=== PATIENT | male | born 1965 | race Caucasian/White ===

== ENCOUNTER → 2017-12-14 15:41 | Outpatient (CLI) | payer MEDICAID, SELFPAY ==
[2017-12-14 17:13] LABS: Absolute Lymphocyte Count 2.29 X10^3/ul (0.83-4.51); Basophil# 0.04 X10^3/uL; Basophil% 0.7 % (0-1); Eosinophil# 0.36 X10^3/uL; Hematocrit 44.3 % (40-54); Hemoglobin 14.4 g/dl (13.0-16.5); Lymphocyte # 2.29 X10^3/ul (4.0); Lymphocyte % 37.9 % (19-41); Mean Corp Hgb Conc 32.5 g/gl (32-36); Mean Corpuscular Hgb 28.7 pg (27.0-32.0); Mean Corpuscular Volume 88.2 fL (80-94); Mean Platelet Vol. 9.5 fl (6.2-12.0); Monocyte# 0.36 X10^3/uL; Neutrophil # 2.99 X10^3/uL (2.7-7.7); Neutrophil % 49.4 % (47-70); Platelet Count 228 K/mm3 (150-450); RBC Distribution Width CV 12.5 % (11.6-14.6); RBC Distribution Width SD 39.6 fl (35.1-43.9); Red Blood Count 5.02 M/mm3 (4.6-6.2)
[2017-12-14 17:15] LABS: POSITIVE COUNT NO; POSITIVE DIFFERENTIAL NO; POSITIVE MORPHOLOGY NO
[2017-12-14 17:46] LABS: Anion Gap 8 (5-15); BUN 17 mg/dL (7-18); BUN/Creat Ratio 15.3 RATIO (10-20); Calcium,Total 8.3 mg/dL (8.5-10.1); Chloride 109 mmol/L (98-107); Creatinine, Serum 1.11 mg/dL (0.70-1.30); EST Glomerular Filtration Rate 74 mL/min (>60); Est Glom Filt Rate - Afr Amer 90 mL/min (>60); Glucose 164 mg/dL (74-106); Potassium 4.4 mmol/L (3.5-5.1); Sodium Level 143 mmol/L (136-145)
== END ==
PROVIDERS: Family Provider Family Medicine; PCP Family Medicine; Visit Provider Nurse Practitioner Family
DX: R00.1 Bradycardia, unspecified (principal); Z95.818 Presence of other cardiac implants and grafts; I10 Essential (primary) hypertension; E78.5 Hyperlipidemia, unspecified
CPT/HCPCS: 36415; 80048; 85025

== ENCOUNTER → 2018-01-07 06:47 | Day surgery (SDC) | payer MEDICAID, SELFPAY ==
--- NOTE | 2018-01-07 06:47 | DT_ITS ---
This patient was seen during an EMR downtime January 03, 2018 - January 10, 2018. This patient may have a combination of paper and electronic documentation or all paper documentation. All documentation is viewable within the e-chart portion of [facility] for each patient visit.
--- NOTE | 2018-01-07 16:57 | CL.IE_ITS ---
Patient: GUERA JAMESON Study Date: 01/07/2018 Performing: Brad Guerra MD : 1965 Age: 52 Gender: male PROCEDURES PERFORMED [id number] OF LOOP RECORDER INDICATIONS End-of-life replacement indicator PROCEDURE DETAILS The patient was brought to the Catheterization Lab in the postabsorptive nonsedated state. Informed consent was obtained prior to the procedure. Local anesthetic was given subcutaneously to the left up per chest area with Lidocaine 2%. Incision was made to the left upper chest. The patient tolerated t he procedure well. Estimated Blood Loss: 5 ml's IMPLANTED / EX-PLANTED DEVICES DEVICE PARAMETERS CONCLUSIONS / RECOMMENDATIONS Device Conclusions: Successful removal of a patient activated loop recorder. Device Recommendations: Follow up with Primary Care Physician PROCEDURE MEDICATIONS Versed 1 mg IV Versed 1 mg IV Oxygen: 2 L/min via nasal cannula Signed By Brad Guerra MD On 01/07/2018 15:00:49 Brad Guerra MD
== END ==
PROVIDERS: Family Provider Family Medicine; PCP Family Medicine; Visit Provider Internal Medicine Cardiovascular Disease
DX: Z45.09 Encounter for adjustment and management of other cardiac device (principal); I49.5 Sick sinus syndrome; E11.9 Type 2 diabetes mellitus without complications; G40.909 Epilepsy, unspecified, not intractable, without status epilepticus; I10 Essential (primary) hypertension; E78.5 Hyperlipidemia, unspecified; G47.33 Obstructive sleep apnea (adult) (pediatric); M54.9 Dorsalgia, unspecified; G89.29 Other chronic pain; E66.9 Obesity, unspecified; Z79.84 Long term (current) use of oral hypoglycemic drugs; Z79.82 Long term (current) use of aspirin; Z79.899 Other long term (current) drug therapy; Z95.818 Presence of other cardiac implants and grafts
CPT/HCPCS: 33284; 99152; J7040

== ENCOUNTER → 2018-01-18 12:57 | Outpatient (CLI) | payer MEDICAID, SELFPAY | PROVIDERS: Family Provider Family Medicine; PCP Family Medicine; Visit Provider Nurse Practitioner Acute Care | DX: G47.33 Obstructive sleep apnea (adult) (pediatric) (principal) | CPT/HCPCS: 98960; G0463 ==

== ENCOUNTER 2018-06-13 11:35 | Day surgery (SDC) | payer MEDICAID, SELFPAY ==
--- NOTE | 2018-06-13 | IMM_PTH ---
PATIENT: GUERA JAMESON LOC: EN U#:[id number] AGE/SX: 52/M ROOM: RE06/13/[address]: Dr. Sonny Reynolds MD : 1965 BED: DIS: 06/13/2018 SPEC #: [id number] RECD: 06/16/18 07:57 STATUS: ANMOL REJackelin #: [id number] DANK: 06/13/18 00:[address]: Sonny Reynolds DEPT: IMMUNOHISTOCHEMISTRY RECD BY: Brigid Link ENTERED: 06/16/18 07:57 SP TYPE: IMMUNO OTHR DR: Dr. Skyler Painting MD Tissues: Gastric mucous membrane Procedures: H Pylori (initial) PHYSICIAN & INSTITUTION [place] [id number] SPECIMEN INFORMATION: Tissue Source: A. Antral biopsy Clinical Info: GERD, screening Specimen Number: [id number] CPT code: 56687 METHODOLOGY: Deparaffinized sections of prefer/formalin-fixed tissue or PAP/DQ stained slides are incubated with monoclonal/polyclonal antibodies/oligonucleotide probes. Localization is made via biotin free immunoperoxidase method. Appropriate controls are performed and reacted as expected. Results on target cell population are indicated in the following table: RESULTS: ANTIBODY / CLONE RESULT H Pylori (polyclonal) negative These tests were developed and their performance characteristics determined by [facility]. They may not have been cleared or approved by the U.S. Food and Drug Administration. The FDA has determined that such clearance or approval is not necessary. INTERPRETATION: Antral biopsy: Negative for Helicobacter pylori organisms. SJ:marisela 06/15/18
--- NOTE | 2018-06-13 12:17 | PCM.HP.BLA ---
History and Physical Date of Admission: 06/13/18 HISTORY AND PHYSICAL ? Aurelio Españaefoo 1965 ? REFERRING PHYSICIAN: ??Skyler Painting MD ? CHIEF COMPLAINT: ??Established Patient (Update H&P colonoscopy 06/13/18) ? HPI: The patient is a 52 year old male referred for endoscopy. ?Patient was evaluated previously by Natalia Gifford in gastroenterology, that note has been reviewed. ?Aurelio notes no history of colon complaints. ?He denies any change in bowel habits, weight changes, blood in stools, black tarry stools or abdominal pain. ?Notes family history of colon cancer in grandfather, but denies any first-degree relatives with colon cancer. ?The patient notes complaints of acid reflux and dyspepsia. ? Aurelio has not?undergone prior endoscopy. ?He was previously scheduled for colonoscopy and EGD in January but states he had to cancel at that time as he did not receive bowel prep prescription. ?He has been rescheduled with Dr. Reynolds for 06/13/18 at [facility] and presents today for updated history and physical. ? Patient is scheduled to have the procedures under Monitored Anesthetic Care due to his history of seizures. ?Most recent seizure was actually a couple of weeks ago, prior to that most recent had been September 2017. ?Patient follows with [facility], last seen in March 2018. ?He states he notified his neurologist immediately after the seizure, states they are keeping his medications the same for now. ?He denies any other new concerns. ?Denies any chest pain, shortness of breath or recent hospitalizations. ?Denies problems with sedation in the past. ? ? PAST MEDICAL HISTORY PAST MEDICAL HISTORY Diagnosis Date ? Chronic depressive personality disorder ? ? HTN (hypertension) ? ? Hyperlipidemia ? ? Seizure disorder (HCC) ? ? Sick sinus syndrome (HCC) ? ? Type II or unspecified type diabetes mellitus without mention of complication, not stated as uncontrolled ? ? Umbilical hernia without mention of obstruction or gangrene 10/16/2005 ? ? PAST SURGICAL HISTORY PAST SURGICAL HISTORY Procedure Laterality Date ? I/D PERIANAL ABSCESS, SUPERFICIAL ? ? ? PAST SURGICAL HISTORY OF ? ? ? Lipoma removal lower back on spine ? PAST SURGICAL HISTORY OF ? ? ? Lipoma removal left forearm ? PAST SURGICAL HISTORY OF ? 2018 ? removal of loop recorder ? REPAIR UMBILICAL CHAY,5+Y/O,REDUC ? 09/2005 ? Hernia repair, umbilical >5yr ? ? CURRENT MEDICATIONS ? Current Outpatient Prescriptions: atorvastatin (LIPITOR) 40 mg tablet TAKE 1 TABLET EVERY DAY lisinopril (ZESTRIL, PRINIVIL) 20 mg tablet TAKE 1 TABLET BY MOUTH TWICE DAILY FOR BLOOD PRESSURE pioglitazone (ACTOS) 15 mg tablet TAKE 1 TABLET EVERY DAY glyBURIDE (DIABETA) 5 mg tablet TAKE 2 TABLETS BY MOUTH EVERY DAY with breakfast COMPOUNDED PRESCRIPTION BLOOD PRESSURE LARGE ARM CUFF AND MONITOR FOR HOME USE. DX: LABILE BLOOD PRESSURE, DX: I.10 metFORMIN (GLUCOPHAGE) 850 mg tablet TAKE 1 TABLET BY MOUTH THREE TIMES DAILY lancets (UNILET SUPER THIN LANCETS) 30 gauge misc Check blood sugar once a day, E11.9 no insuline blood sugar diagnostic (FREESTYLE LITE STRIPS) test strip Check blood sugar once a day, Dx E11.9 no insulin amLODIPine (NORVASC) 5 mg tablet Take 5 mg by mouth once daily. MAGNESIUM ORAL Take 160 mg by mouth. mag citrate Blood-Glucose Meter (Multiwave PhotonicsTOUCH ULTRA2) monitoring kit 1 Each as needed. One Touch Meter Kit ??Diagnosis: Type 2 DM - Controlled E11.9 no insulin levETIRAcetam (KEPPRA) 1,000 mg tablet Take 1 tablet by mouth twice daily. FLUoxetine (PROZAC) 20 mg capsule Take 1 capsule by mouth once daily. [facility] (Patient taking differently: Take 30 mg by mouth once daily. [facility] ) CPAP Initiate CPAP @ 15 cm of water with humidification. Mask (per patient preference) optional chin strap (if indicated) , filters, tubing, humidifier and lifetime supplies. 327.23 (Patient taking differently: Initiate BIPAP @ 15 cm of water with humidification. Mask (per patient preference) optional chin strap (if indicated) , filters, tubing, humidifier and lifetime supplies. 327.23) aspirin, enteric coated (ASPIRIN, ENTERIC COATED) 325 mg EC tablet Take 1 tablet by mouth once daily. with food. loratadine (CLARITIN) 10 mg tablet Take 1 tablet by mouth once daily as needed. ? No current facility-administered medications for this visit. ? ALLERGIES: Patient has no known allergies. ? PERSONAL HISTORY: SOCIAL HISTORY Social History ??Marital status: Single ?Spouse name: ?Years of education: ?Number of children: 0 ? Occupational History Occupation ?Employer ?Comment ? laid off from [employer] ? Social History Main Topics ??Smoking status: Never Smoker ?Smokeless tobacco: Never Used ?Alcohol use: Yes ?Comment: occasionally ??Drug use: No ?Sexual activity: No ? FAMILY HISTORY: FAMILY HISTORY FAMILY HISTORY Problem Relation Age of Onset ? Psychiatry Mother ?depression ? Cancer Mother ?uterine ? Emphysema Father ?smoker ? Colon Cancer Paternal Grandfather ? ? Cancer Maternal Grandmother ?pancreatic ? Diabetes Paternal Grandmother ? ? Diabetes Maternal Uncle ? ? other (pulmonary embolism) Maternal Uncle ? ? REVIEW OF SYMPTOMS: ??The review of systems data was entered by the nurse and reviewed by me ? Nursing Notes: Armand Orozco LPN ?06/06/2018 ?2:55 PM ?Signed REVIEW OF SYSTEMS: ?General:???The patient denies fatigue, denies weight loss, denies weight gain, denies feeling hot, and denies feelings of cold. ?Eyes: ?The patient denies glaucoma, denies eye injury/surgery, wears glasses or contacts. ?Ear/Nose/Throat: ?The patient denies allergies, denies hayfever, denies ear infections, and denies bloody noses. ?Cardiovascular: ?The patient denies chest pain, denies heart disease, NOTES high blood pressure,denies cardiac stent, denies prior heart attack, NOTES irregular heart beat, NOTES high cholesterol, ?denies poor circulation, denies heart failure, other cardiac issues, denies claudication, denies cold feet, denies peripheral arterial stent. ?Respiratory: ?The patient denies tuberculosis, NOTES pneumonia, denies frequent cough, denies pulmonary embolism, denies shortness of breath, and denies coughing up blood. ?Gastrointestinal: ?The patient denies difficulty swallowing, NOTES acid reflux, denies ulcers, denies vomiting, denies jaundice/hepatitis, denies gallbladder problems, denies black or tarry stools, denies hemorrhoids, denies bleeding from rectum, denies diverticulitis, denies constipation, denies diarrhea, denies loss of stool control, and NOTES hernias. ?Kidney/Bladder: ?The patient denies kidney stones, denies urine infections, and denies bloody urine. ?Skin: ?The patient denies a history of skin cancer, denies bleeding/changing moles, and NOTES a history of skin rash. ?Neurologic: ?The patient NOTES a history of epilepsy/convulsions, denies headaches, NOTES head/spinal injuries, and denies stroke/TIA. ?Psychiatric: ?The patient NOTES psychiatric medications, NOTES depression, and denies voices, denies substance abuse. ?Endocrine: ?The patient denies thyroid disorders, NOTES diabetes, and denies hormonal problems. ?Hematologic: ?The patient denies a history of bruising, denies bleeding, and denies anemia, denies blood clots. ?Infections: ?The patient denies a history of measles and mumps, denies rheumatic fever, and denies sexually transmitted diseases. ?Musculoskeletal: ?The patient NOTES back pain/injury, denies back problems, denies sciatica, denies knee/foot trouble, denies arthritis, or denies gout. ? ? When was patient's last Mammogram screening? N/A ? ?Last Colonoscopy: ?N/A ? Armand Orozco LPN? Pat Peñaloza PA-C ? ? PHYSICAL EXAMINATION: ? General: ?The patient is 52 year old male, well nourished, well hydrated in no acute distress. ?The patient is oriented to time, place, and person. ? VITALS: Blood pressure 118/82, pulse 92.?There is no height or weight on file to calculate BMI.? ? HEENT: ?Normal cephalic, ataumatic, pupils are equally round, sclera are anicteric, mucous membranes are moist, oropharynx is clear. ?Neck has no masses, asymmetry or lymphadenopathy. ? ? Respiratory: ?Clear to auscultation and percussion. ?Normal respiratory excursion and pattern. ? Cardiac: ?Examination is regular rate and rhythm. ? Abdominal exam: ?Soft, nontender, ?with no palpable masses. ?No hepatosplenomegaly. ?No palpable hernias. ? Extremities: ?no clubbing, cyanosis or edema. ?No adenopathy. ? ? LABORATORY VALUES: As Noted ? RADIOLOGIC STUDIES: ?As Noted ? ? Assessment ? IMPRESSION: encounter for screening colonoscopy, GERD. ?Seizure disorder with recent seizure since last visit ? PLAN: ?I have reviewed my findings with Dr. Reynolds, who plans to perform upper and lower endoscopy. ?We discussed the risks and benefits of the planned endoscopy. ?I have informed the patient that complications can occur including failure to complete the endoscopy and perforation. ?The patient had the opportunity to ask questions concerning the planned endoscopy. ?My staff has also explained the procedure to the patient in understandable terms and has given the patient printed material concerning the procedure. ?The patient freely consents to surgery. ? Request for clearance for endoscopy procedures faxed to [facility]-clearance received from Leisa Sanchez and scanned in to [facility] ? I plan to use golytely bowel preparation for endoscopy ? The patient has been instructed to contact his PCP for instructions regarding his diabetic medications, which may require adjustments while completing clear liquid diet/bowel prep and/or day of procedure. ? Patient to remain on all other routine medications as usual, including his seizure and blood pressure medications which he should make sure to take the morning of procedure with a tiny sip of water ? I plan for monitored anesthetic care. ? Diagnoses: (Z12.11) Encounter for screening for malignant neoplasm of colon ?(primary encounter diagnosis) (E11.65) Uncontrolled type 2 diabetes mellitus without complication, without long-term current use of insulin (HCC) (G40.909) Seizure disorder (HCC) (K30) Functional dyspepsia (R12) Heartburn ? My findings have been communicated to Dr. Painting?via shared medical record. ?This note will be forwarded to Dr. Skyler Painting MD. ?? Return to Clinic: The patient is instructed to follow-up with me 1 week post operatively. ? ? Pat Peñaloza PA-C
[2018-06-13 12:21] VITALS: BP 122/78; PULSE 95; RESP 14; TEMP 36.7; O2SAT 98; BMI 38.2
[2018-06-13 12:36] LABS: Bedside Glucose 246 mg/dL (70-110)
--- NOTE | 2018-06-13 13:00 | EGD_PTH ---
PATIENT: GUERA JAMESON LOC: EN U#:[id number] AGE/SX: 52/M ROOM: RE06/13/[address]: Dr. Sonny Reynolds MD : 1965 BED: DIS: 06/13/2018 SPEC #: [id number] RECD: 06/13/18 15:13 STATUS: ANMOL REJackelin #: [id number] DANK: 06/13/18 13:[address]: Sonny Reynolds DEPT: SURGICAL PATHOLOGY RECD BY: Isreal Miller ENTERED: 06/14/18 10:11 SP TYPE: EGD BIOPSY OT DR: Dr. Skyler Painting MD Tissues: A - Gastric mucous membrane B - Gastric mucous membrane C - Transverse colon D - Rectum, NOS Procedures: Surgery Specimen Level IV HEADER OPERATION: [place] [place] DIAGNOSIS: GERD, screening TISSUE SUBMITTED: A. Antral biopsy, B. GE junction biopsy, C. Proximal transverse colon polyp, D. Rectal polyp MICROSCOPIC DIAGNOSIS A. Antral biopsy: Mild gastritis. See microscopic description and comment. B. GE junction, biopsy: Fragment of gastric mucosa with mild chronic inflammation. Intestinal metaplasia (goblet cell metaplasia) not identified. See comment. C. Proximal transverse colon polyp, biopsy: Consistent with inflammatory polyp. Negative for adenomatous changes. D. Rectal polyp, biopsy: Consistent with benign mucosal polyp. Negative for adenomatous changes. PEYMAN:arun 06/15/18 COMMENT A. The results of immunohistochemistry for Helicobacter pylori will be reported separately ([id number]). B. Alcian blue/PAS stain with matched control is used in the evaluation of the specimen. MICROSCOPIC DESCRIPTION Slides are reviewed. A. The specimen shows fragments of gastric mucosa with chronic inflammatory cell infiltrates in the lamina propria consisting of lymphocytes and plasma cells, consistent with mild chronic gastritis. GROSS DESCRIPTION A. Received is one container labeled with the patient name and designated antral biopsy. The specimen consists of one irregular fragment of light keith soft tissue that measures 0.5 x 0.3 x 0.1 cm. The specimen is totally submitted in one cassette. B. Received is one container labeled with the patient name and designated GE junction biopsy. The specimen consists of two irregular fragments of light keith soft tissue that in aggregate measure 0.5 x 0.3 x 0.1 cm. The specimen is totally submitted in one cassette. C. Received in fixative is one container labeled with the patient's name and designated proximal transverse colon polyp. The specimen consists of a piece of keith-pink polyp measuring 0.5 x 0.5 x 0.3 cm in one cassette. D. Received in fixative is one container labeled with the patient's name and designated rectal polyp. The specimen consists of a piece of keith-pink polyp measuring 0.3 x 0.3 x 0.2 cm. SJ:sp 06/14/18 TC: 3 CPT: 92826 x4, 64117
[2018-06-13 14:08] VITALS: BP 106/79; BP 122/78; PULSE 82; RESP 16; TEMP 36.1; O2SAT 95
--- NOTE | 2018-06-13 14:12 | OP.ENDO_ITS ---
Patient Name: Aurelio Recinos Procedure Date: 06/13/2018 1:31 PM Date of : 1965 Age: 52 Procedure: Upper GI endoscopy Indications: Suspected esophageal reflux Providers: Sonny Reynolds MD Referring MD: Sonny Reynolds MD Medicines: Monitored Anesthesia Care Patient Profile: This is a 52 year old male. Refer to note in patient chart for documentation of history and physical. Complications: No immediate complications. Procedure: Pre-Anesthesia Assessment: - Prior to the procedure, a History and Physical was performed, and patient medications and allergies were reviewed. The patient is competent. The risks and benefits of the procedure and the sedation options and risks were discussed with the patient. All questions were answered and informed consent was obtained. Patient identification and proposed procedure were verified by the physician, the nurse and the inside parts sales in the procedure room. Mental Status Examination: alert and oriented. Airway Examination: normal oropharyngeal airway and neck mobility. Respiratory Examination: clear to auscultation. CV Examination: normal. Prophylactic Antibiotics: The patient does not require prophylactic antibiotics. Prior Anticoagulants: The patient has taken no previous anticoagulant or antiplatelet agents. ASA Grade Assessment: III - A patient with severe systemic disease. After reviewing the risks and benefits, the patient was deemed in satisfactory condition to undergo the procedure. The anesthesia plan was to use monitored anesthesia care (MAC). Immediately prior to administration of medications, the patient was re-assessed for adequacy to receive sedatives. The heart rate, respiratory rate, oxygen saturations, blood pressure, adequacy of pulmonary ventilation, and response to care were monitored throughout the procedure. The physical status of the patient was re-assessed after the procedure. After obtaining informed consent, the endoscope was passed under direct vision. Throughout the procedure, the patient's blood pressure, pulse, and oxygen saturations were monitored continuously. The gastroscope was introduced through the mouth, and advanced to the jejunum. The upper GI endoscopy was accomplished without difficulty. The patient tolerated the procedure well. Scope In: 1:46:55 PM Scope Out: 1:51:37 PM Total Procedure Duration Time 0 hours 4 minutes 42 seconds Findings: The examined jejunum was normal. The examined duodenum was normal. Patchy moderate inflammation characterized by erosions, erythema and granularity was found in the stomach. Biopsies were taken with a cold forceps for Helicobacter pylori testing. Biopsies were taken with a cold forceps for histology. Biopsies were taken with a cold forceps for histology. A small hiatal hernia was present. Mildly severe esophagitis with no bleeding was found. Biopsies were taken with a cold forceps for histology. Impression: - Normal examined jejunum. - Normal examined duodenum. - Gastritis. Biopsied. - Small hiatal hernia. - Mildly severe reflux esophagitis. Biopsied. Recommendation: - Await pathology results. - Return to physician drafter assistant in 1 week. - Continue present medications. Procedure Code(s): --- Professional --- 39887, Esophagogastroduodenoscopy, flexible, transoral; with biopsy, single or multiple CPT copyright 2017 [employer]. All rights reserved. The codes documented in this report are preliminary and upon gum machine filler review may be revised to meet current compliance requirements. Sonny Reynolds MD 06/13/2018 2:12:03 PM This report has been signed electronically. Number of Addenda: 0 Note Initiated On: 06/13/2018 1:31 PM
--- NOTE | 2018-06-13 14:14 | OP.ENDO_ITS ---
Patient Name: Aurelio Recinos Procedure Date: 06/13/2018 1:51 PM Date of : 1965 Age: 52 Procedure: Colonoscopy Indications: Screening for colorectal malignant neoplasm Providers: Sonny Reynolds MD Referring MD: Sonny Reynolds MD Medicines: Monitored Anesthesia Care Patient Profile: This is a 52 year old male. Refer to note in patient chart for documentation of history and physical. Last Colonoscopy: none. The patient's first colonoscopy is today. Complications: No immediate complications. Procedure: Pre-Anesthesia Assessment: - Prior to the procedure, a History and Physical was performed, and patient medications and allergies were reviewed. The patient is competent. The risks and benefits of the procedure and the sedation options and risks were discussed with the patient. All questions were answered and informed consent was obtained. Patient identification and proposed procedure were verified by the physician, the nurse and the auto clutch rebuilder in the procedure room. Mental Status Examination: alert and oriented. Airway Examination: normal oropharyngeal airway and neck mobility. Respiratory Examination: clear to auscultation. CV Examination: normal. Prophylactic Antibiotics: The patient does not require prophylactic antibiotics. Prior Anticoagulants: The patient has taken no previous anticoagulant or antiplatelet agents. ASA Grade Assessment: III - A patient with severe systemic disease. After reviewing the risks and benefits, the patient was deemed in satisfactory condition to undergo the procedure. The anesthesia plan was to use monitored anesthesia care (MAC). Immediately prior to administration of medications, the patient was re-assessed for adequacy to receive sedatives. The heart rate, respiratory rate, oxygen saturations, blood pressure, adequacy of pulmonary ventilation, and response to care were monitored throughout the procedure. The physical status of the patient was re-assessed after the procedure. After I obtained informed consent, the scope was passed under direct vision. Throughout the procedure, the patient's blood pressure, pulse, and oxygen saturations were monitored continuously. The colonoscope was introduced through the anus and advanced to the cecum, identified by the appendiceal orifice, ileocecal valve and palpation. The colonoscopy was performed without difficulty. The patient tolerated the procedure well. The quality of the bowel preparation was fair. Scope In: 1:53:34 PM Scope Withdrawal Time 0 hours 7 minutes 28 seconds Scope Out: 2:04:04 PM Total Procedure Duration Time 0 hours 10 minutes 30 seconds Findings: The perianal and digital rectal examinations were normal. Two sessile polyps were found in the rectum and mid transverse colon. The polyps were small in size. These polyps were removed with a hot snare. Resection and retrieval were complete. The exam was otherwise without abnormality. The retroflexed view of the distal rectum and anal verge was normal and showed no anal or rectal abnormalities. Impression: - Preparation of the colon was fair. - Two small polyps (adenomatous) in the rectum and in the mid transverse colon, removed with a hot snare. Resected and retrieved. - The examination was otherwise normal. - The distal rectum and anal verge are normal on retroflexion view. Recommendation: - Discharge patient to home. - Resume previous diet. - Continue present medications. - Return to physician technical support assistant in 1 week. - Repeat colonoscopy for surveillance based on pathology results. Procedure Code(s): --- Professional --- 14516, Colonoscopy, flexible; with removal of tumor(s), polyp(s), or other lesion(s) by snare technique CPT copyright 2017 [employer]. All rights reserved. The codes documented in this report are preliminary and upon director oncology review may be revised to meet current compliance requirements. Sonny Reynolds MD 06/13/2018 2:13:55 PM This report has been signed electronically. Number of Addenda: 0 Note Initiated On: 06/13/2018 1:51 PM
[2018-06-13 14:15] VITALS: BP 109/80; BP 122/78; PULSE 85; RESP 16; O2SAT 95
[2018-06-13 14:20] VITALS: BP 112/88; BP 122/78; PULSE 80; RESP 16; O2SAT 94
[2018-06-13 14:25] VITALS: BP 118/85; BP 122/78; PULSE 80; RESP 16; TEMP 36; O2SAT 95
[2018-06-13 14:45] VITALS: BP 122/78
== END 2018-06-13 15:11 | disposition home or self-care (01) ==
LOC: EN 11:36 → AC 11:38
PROVIDERS: Family Provider Family Medicine; PCP Family Medicine; Referring Provider Surgery; Visit Provider Surgery
PROC: 0DJD8ZZ Inspection of Lower Intestinal Tract, Via Natural or Artificial Opening Endoscopic (ICD-10-PCS; CPT 45378; principal; 2018-06-13 12:55)
DX: Z12.11 Encounter for screening for malignant neoplasm of colon (principal); K63.5 Polyp of colon; K62.1 Rectal polyp; K29.70 Gastritis, unspecified, without bleeding; K44.9 Diaphragmatic hernia without obstruction or gangrene; K21.0 Gastro-esophageal reflux disease with esophagitis; G40.909 Epilepsy, unspecified, not intractable, without status epilepticus; F32.9 Major depressive disorder, single episode, unspecified; I10 Essential (primary) hypertension; E78.00 Pure hypercholesterolemia, unspecified; I49.5 Sick sinus syndrome; E11.65 Type 2 diabetes mellitus with hyperglycemia; K42.9 Umbilical hernia without obstruction or gangrene; G47.30 Sleep apnea, unspecified; Z79.84 Long term (current) use of oral hypoglycemic drugs; Z79.82 Long term (current) use of aspirin; Z79.899 Other long term (current) drug therapy
CPT/HCPCS: 45385; 43239; 82962; 88305; 88342; J7120

== ENCOUNTER → 2019-03-23 | Outpatient (CLI) | payer MEDICAID, SELFPAY ==
[2018-07-19 14:57] VITALS: BMI 38.7
[2019-03-23 08:43] LABS: AST(SGOT) 24 U/L (15-37); Alanine Aminotransfer ALT/SGPT 52 U/L (16-61); Albumin, Serum 3.6 g/dL (3.2-5.0); Alkaline Phosphatase 65 U/L (45-117); Anion Gap 7 (5-15); BUN 13 mg/dL (7-18); BUN/Creat Ratio 10.8 RATIO (10-20); Calcium,Total 8.2 mg/dL (8.5-10.1); Chloride 109 mmol/L (98-107); EST Glomerular Filtration Rate 68 mL/min (>60); Est Glom Filt Rate - Afr Amer 82 mL/min (>60); Globulin 3.6 g/dL (2.2-4.2); Glucose 179 mg/dL (74-106); Potassium 4.2 mmol/L (3.5-5.1); Protein, Total 7.2 g/dL (6.4-8.2); Sodium Level 141 mmol/L (136-145)
[2019-03-27 10:10] LABS: KEPPRA (LEVETIRACETAM) 38.6 ug/mL (10.0-40.0)
== END | disposition home or self-care (01) ==
LOC: LAB.FUTURE 07:44
PROVIDERS: Family Provider Family Medicine; PCP Family Medicine; Referring Provider Nurse Practitioner Family; Visit Provider Nurse Practitioner Family
DX: R56.9 Unspecified convulsions (principal)
CPT/HCPCS: 36415; 80053; 80177

== ENCOUNTER → 2019-11-29 13:14 | Outpatient (CLI) | payer MEDICAID, SELFPAY ==
[2019-11-09 16:50] VITALS: BMI 38.7
--- NOTE | 2019-11-29 13:16 | MRI_ITS ---
STUDY: MRI BRAIN WITH AND WITHOUT CONTRAST REASON FOR EXAM: Male, 54 years old. SEIZURE -- breakthrough seizures while on meds, seizures started in 2013 TECHNIQUE: Standardized multiplanar fat and water weighted pulse sequences were obtained. IV Yes YES was administered for the contrast portion of the examination. COMPARISON: Head CT dated November 09, 2016. MRI of the brain dated November 10, 2016. FINDINGS: Normal size of the ventricles and extra-axial spaces for the patient''s age. Normal white matter tracts of the supratentorial brain. There is no evidence for recent intracranial ischemia or other cause of cytotoxic edema on diffusion weighted imaging (DWI). Normal T2* images of the brain without demonstrated susceptibility artifact. There is no demonstrated hemosiderin stain. No demonstrated hydrocephalus. No midline shift. No demonstrated sclerosis or atrophy of the mesial temporal regions. Normal bilateral basal ganglia. Normal thalami. There is no extra-axial fluid accumulation. Normal flow voids within the major intracranial circulation suggesting patency by spin echo criteria. Normal venous enhancement. There is no enhancing intra-axial or extra-axial abnormality. Normal sella turcica, pituitary gland, infundibular stalk, optic chiasm and hypothalamus. Normal tectal plate and pineal gland. Normal midbrain, sweta and medulla. Normal cerebellum. Normal basal cisterns. Normal bilateral temporal bones. Normal bilateral internal auditory canals. No demonstrated orbital abnormality, within the constraints of a routine brain study. Normal visualized paranasal sinuses. Normal calvarium and skull base. Normal visualized soft tissue structures. Normal visualized upper cervical spine. MRI/Brain W/WO Contrast IMPRESSION: 1. No demonstrated acute or significant intracranial process. 2. No abnormal signal or evidence of acute infarction. 3. No demonstrated hydrocephalus. No midline shift. No demonstrated sclerosis or atrophy of the mesial temporal regions. 4. No abnormal enhancement. Electronically Signed: Toni Duncan MD at 21:05 EDT , Service support ,
== END ==
PROVIDERS: PCP Family Medicine; Referring Provider Psychiatry & Neurology Neurology; Visit Provider Psychiatry & Neurology Neurology
DX: G40.909 Epilepsy, unspecified, not intractable, without status epilepticus (principal)
CPT/HCPCS: 70553; A9575

== ENCOUNTER → 2020-01-08 | Outpatient (CLI) | payer MEDICAID, SELFPAY ==
[2019-11-09 16:50] VITALS: BMI 38.7
== END | disposition home or self-care (01) ==
LOC: PSN 07:26
PROVIDERS: PCP Family Medicine; Referring Provider Psychiatry & Neurology Neurology; Visit Provider Psychiatry & Neurology Neurology
DX: R56.9 Unspecified convulsions (principal)
CPT/HCPCS: 95819

== ENCOUNTER → 2020-02-22 16:08 | Outpatient (CLI) | payer MEDICAID, SELFPAY ==
[2019-12-14 14:50] VITALS: BMI 38.7
[2020-02-22 17:01] LABS: Hematocrit 44.2 % (40-54); Hemoglobin 14.4 g/dL (13.0-16.5); Mean Corp Hgb Conc 32.6 g/dL (32-36); Mean Corpuscular Hgb 29.3 pg (27.0-32.0); Mean Platelet Vol. 10.1 fl (6.2-12.0); Platelet Count 235 K/mm3 (150-450); RBC Distribution Width CV 12.5 % (11.6-14.6); RBC Distribution Width SD 40.7 fl (35.1-43.9); Red Blood Count 4.91 M/mm3 (4.6-6.2); White Blood Count 5.4 K/mm3 (4.4-11.0)
[2020-02-22 17:49] LABS: AST(SGOT) 18 U/L (15-37); Alanine Aminotransfer ALT/SGPT 34 U/L (16-61); Albumin, Serum 3.7 g/dL (3.2-5.0); Alkaline Phosphatase 69 U/L (45-117); Anion Gap 4 (5-15); BUN 19 mg/dL (7-18); BUN/Creat Ratio 15.7 RATIO (10-20); Calcium,Total 8.7 mg/dL (8.5-10.1); Chloride 102 mmol/L (98-107); Creatinine, Serum 1.21 mg/dL (0.70-1.30); EST Glomerular Filtration Rate 67 mL/min (>60); Est Glom Filt Rate - Afr Amer 81 mL/min (>60); Globulin 3.7 g/dL (2.2-4.2); Glucose 347 mg/dL (74-106); Potassium 4.7 mmol/L (3.5-5.1); Protein, Total 7.4 g/dL (6.4-8.2); Sodium Level 133 mmol/L (136-145); Thyroid Stim Hormone (TSH) 2.73 uIU/mL (0.358-3.74)
[2020-02-26 11:36] LABS: KEPPRA (LEVETIRACETAM) 18.4 ug/mL (10.0-40.0); Trileptal-Oxcarbazepine 10 ug/mL (10-35)
== END ==
PROVIDERS: Nurse Practitioner Family; PCP Family Medicine; Referring Provider Psychiatry & Neurology Neurology; Visit Provider Psychiatry & Neurology Neurology
DX: G40.909 Epilepsy, unspecified, not intractable, without status epilepticus (principal); G40.919 Epilepsy, unspecified, intractable, without status epilepticus
CPT/HCPCS: 36415; 80053; 80177; 82140; 82542; 83735; 84443; 85027

== ENCOUNTER → 2020-06-20 13:34 | Outpatient (CLI) | payer MEDICAID, SELFPAY ==
[2020-06-20 14:28] LABS: Sodium Level 138 mmol/L (136-145)
[2020-06-23 15:28] LABS: Trileptal-Oxcarbazepine 16 ug/mL (10-35)
== END ==
PROVIDERS: PCP Family Medicine; Referring Provider Nurse Practitioner Family; Visit Provider Nurse Practitioner Family
DX: E87.1 Hypo-osmolality and hyponatremia (principal); G40.909 Epilepsy, unspecified, not intractable, without status epilepticus
CPT/HCPCS: 36415; 82542; 84295

== ENCOUNTER 2020-08-03 16:11 | Emergency (ER) | payer MEDICAID, SELFPAY ==
[2020-08-03 16:11] VITALS: BP 166/111; PULSE 124; RESP 20; TEMP 35.7; O2SAT 92; BMI 32.9
--- NOTE | 2020-08-03 17:20 | ED.VISSUMM ---
- ER Visit Summary Date of Service: 08/03/20 Chief Complaint: Seizures x2 today with a history of seizure disorder History of Present Illness: The patient is a 54 M history of seizure disorders post [id number] diabetes. Patient was at home seated and had 2 seizures several minutes apart. No fall or injury. Witnessed by family. Currently denies any complaints. He denies any recent head injury. He denies headache. He denies recently being ill. States he has been taking his seizure medications. Denies any recent fever. Physical Examination: Middle-aged male no acute distress vital signs stable afebrile. HEENT exam pupils round reactive light his motions are intact. No signs of trauma to his face or scalp nontender. Neck nontender. No lymphadenopathy. No meningismus. Lungs clear to auscultation bilaterally. Heart regular rhythm rate about 103 no murmur. Chest wall nontender. Abdomen soft nontender normal bowel sounds no peritoneal signs. Mildly obese. Patient is moving all 4 extremities. Neurovascular intact. 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 Dorsi plantarflexion intact. Nontender. No deformities. Back nontender. Neurologically is awake alert. He is answering questions and following commands. He has no focal motor or sensory deficits. Test Results: Chemistry panel unremarkable other than creatinine of 1.4 previously 1.21. Gap of 18 I suspect secondary to his seizure and glucose of 413. Repeat exam at 8:30 PM he is doing well. He is comfortable being discharged home. He knows about his elevated blood sugar and will recheck at home and take medications for there. Emergency Department Course and Treatment: Middle-aged male no history of seizure disorder with seizures x2 today. Has unremarkable exam at this time. Treatment Plan: Continue his current medications. Follow-up with his primary care physician. Return if worse. No driving. Disposition: Discharge Impression: Acute seizure History of seizure disorder History of [id number] diabetes with acute hyperglycemia. This note was generated with [employer] dictation software. It may contain incorrect words, spelling, and punctuation that were not noted in review of the chart prior to signing ED Disposition - Plan for ED Patient: Referrals: Skyler Painting MD [Primary Care Provider] -
[2020-08-03 17:36] LABS: Anion Gap 18 (5-15); BUN 15 mg/dL (7-18); BUN/Creat Ratio 10.6 RATIO (10-20); Calcium,Total 8.7 mg/dL (8.5-10.1); Chloride 102 mmol/L (98-107); Creatinine, Serum 1.41 mg/dL (0.70-1.30); EST Glomerular Filtration Rate 56 mL/min (>60); Est Glom Filt Rate - Afr Amer 67 mL/min (>60); Estimated Creatinine Clearance 60.59 ml/min; Glucose 413 mg/dL (74-106); Potassium 4.4 mmol/L (3.5-5.1); Sodium Level 137 mmol/L (136-145)
--- NOTE | 2020-08-03 17:45 | ED.RN ---
spoke with pt's sister, Jessica for update.
[2020-08-03 17:46] VITALS: BP 137/92; PULSE 110; RESP 15; O2SAT 95
[2020-08-03 19:08] VITALS: BP 120/89; PULSE 102; RESP 16; O2SAT 95
--- NOTE | 2020-08-03 20:32 | ED.DEP ---
ED Disposition - Plan for ED Patient: Disposition: Home or Assisted Living Instructions: ED Seizure, Recurrent (Adult), ED Diabetic Hyperglycemia Referrals: Skyler Painting MD [Primary Care Provider] - 3-5 Days if not improving Additional Instructions: Recheck your blood sugar at home and address the elevated blood sugar this evening. Watch her blood sugar closely next several days. Continue to take your normal medications especially your seizure medication. All of your primary care physician. Return if you are feeling worse.
[2020-08-03 20:35] VITALS: BP 142/84; PULSE 90; RESP 16; O2SAT 98
[2020-08-05 07:05] LABS: Bedside Glucose 293 mg/dL (70-110)
== END 2020-08-03 20:40 | disposition home or self-care (01) ==
PROVIDERS: Emergency Provider Emergency Medicine; PCP Family Medicine
DX: G40.909 Epilepsy, unspecified, not intractable, without status epilepticus (principal); E11.65 Type 2 diabetes mellitus with hyperglycemia; Z79.84 Long term (current) use of oral hypoglycemic drugs; Z79.899 Other long term (current) drug therapy
CPT/HCPCS: 80048; 82962; 99285; A4216

== ENCOUNTER → 2020-10-03 10:01 | Outpatient (CLI) | payer MEDICAID, SELFPAY ==
[2020-10-03 11:01] LABS: Anion Gap 6 (5-15); BUN 17 mg/dL (7-18); BUN/Creat Ratio 15.3 RATIO (10-20); Calcium,Total 8.8 mg/dL (8.5-10.1); Chloride 104 mmol/L (98-107); Creatinine, Serum 1.11 mg/dL (0.70-1.30); EST Glomerular Filtration Rate 73 mL/min (>60); Est Glom Filt Rate - Afr Amer 89 mL/min (>60); Glucose 106 mg/dL (74-106); Potassium 4.2 mmol/L (3.5-5.1); Sodium Level 137 mmol/L (136-145)
[2020-10-11 21:49] LABS: Trileptal-Oxcarbazepine 20 ug/mL (10-35)
== END ==
PROVIDERS: PCP Family Medicine; Referring Provider Psychiatry & Neurology Neurology; Visit Provider Psychiatry & Neurology Neurology
DX: G40.909 Epilepsy, unspecified, not intractable, without status epilepticus (principal)
CPT/HCPCS: 36415; 80048; 82542

== ENCOUNTER → 2020-11-30 09:04 | Outpatient (CLI) | payer MEDICAID, SELFPAY ==
[2020-12-04 16:41] LABS: KEPPRA (LEVETIRACETAM) 12.1 ug/mL (10.0-40.0)
== END ==
PROVIDERS: PCP Family Medicine; Referring Provider Nurse Practitioner Family; Visit Provider Nurse Practitioner Family
DX: G40.909 Epilepsy, unspecified, not intractable, without status epilepticus (principal)
CPT/HCPCS: 36415; 80177; 82140

== ENCOUNTER → 2021-04-11 11:32 | Outpatient (CLI) | payer MEDICAID, SELFPAY ==
[2021-04-11 12:21] LABS: Anion Gap 6 (5-15); BUN 13 mg/dL (7-18); Calcium,Total 7.9 mg/dL (8.5-10.1); Chloride 108 mmol/L (98-107); EST Glomerular Filtration Rate 83 mL/min (>60); Est Glom Filt Rate - Afr Amer 100 mL/min (>60); Glucose 184 mg/dL (74-106); Potassium 4.4 mmol/L (3.5-5.1); Sodium Level 141 mmol/L (136-145)
[2021-04-14 16:45] LABS: KEPPRA (LEVETIRACETAM) 9.3 ug/mL (10.0-40.0); Trileptal-Oxcarbazepine 19 ug/mL (10-35)
== END ==
PROVIDERS: PCP Family Medicine; Referring Provider Nurse Practitioner Family; Visit Provider Nurse Practitioner Family
DX: G40.909 Epilepsy, unspecified, not intractable, without status epilepticus (principal)
CPT/HCPCS: 36415; 80048; 80177; 82140; 82542

== ENCOUNTER 2021-06-15 13:55 | Emergency (ER) | payer MEDICAID, SELFPAY ==
[2021-06-15 13:56] VITALS: BP 156/110; PULSE 127; RESP 18; TEMP 35.7; O2SAT 96; BMI 40.0
--- NOTE | 2021-06-15 14:13 | EDS_ITS ---
HPI History of Present Illness Chief Complaint: Seizure Informant: patient and EMS Narrative Narrative: 55-year-old male presenting to the emergency department via EMS with a chief complaint of seizure. Patient has a history of epilepsy and follows with Dr. Iniguez. He is currently on Keppra and oxcarbazepine. He denies missing any doses. He was with his aunt and uncle today who he has been helping care for and reportedly had a seizure. EMS notes that he was postictal upon arrival. He has not had a seizure for 6 months. [facility] Medical History Breakthrough seizure Chronic back pain Diabetes mellitus type 2 in obese Encounter for long-term current use of high risk medication Frequent headaches GERD (gastroesophageal reflux disease) High triglycerides History of back problems History of emotional problems Hyperlipidemia Hypertension Multiple lipomas Pneumonia Rhomboid muscle pain Seasonal allergies Seizure Seizures Sick sinus syndrome Sinus bradycardia Home Medications fluoxetine 30 mg PO DAILY 06/24/16 [History Last Taken 11/08/16] acetaminophen 650 mg PO Q6H PRN PRN #0 tab 11/10/16 [Rx Last Taken Unknown] metformin 850 mg PO TIDCM 01/12/17 [History Last Taken Unknown] glyburide 5 mg tablet 10 mg PO BID tab 05/14/20 [History Last Taken Unknown] omeprazole 40 mg capsule,delayed release 40 mg PO DAILY cap 05/14/20 [History Last Taken Unknown] dapagliflozin 5 mg tablet 5 mg PO DAILY tab 09/19/20 [History Last Taken Unknown] magnesium oxide 400 mg (241.3 mg magnesium) tablet 400 mg PO DAILY PRN 09/19/20 [History Last Taken Unknown] pioglitazone 30 mg tablet 30 mg PO DAILY tab 09/19/20 [History Last Taken Unknown] cetirizine 10 mg capsule 10 mg PO DAILY PRN 11/21/20 [History Last Taken Unknown] atorvastatin 80 mg tablet 80 mg PO DAILY tab 04/03/21 [History Last Taken Unknown] cyclobenzaprine 10 mg tablet 10 mg PO TID PRN #90 tab 04/03/21 [Rx Last Taken Unknown] ibuprofen 800 mg tablet 800 mg PO Q8H PRN #90 tab 04/03/21 [Rx Last Taken Unknown] lisinopril 40 mg tablet 40 mg PO DAILY tab 04/03/21 [History Last Taken Unknown] amlodipine 5 mg tablet 5 mg PO DAILY #90 tab 04/25/21 [Rx Last Taken Unknown] levetiracetam 750 mg tablet See Rx Instructions .ROUTE .COMPLEX #90 tab 05/12/21 [Rx Last Taken Unknown] oxcarbazepine 300 mg tablet 300 mg PO BID #60 tab 05/12/21 [Rx Last Taken Unknown] oxcarbazepine 600 mg tablet 600 mg PO BID #60 tab 05/12/21 [Rx Last Taken Unknown] Allergy/AdvReac Type Severity Reaction Status Date / Time No Known Allergies Allergy Verified 05/12/21 15:16 Family History Mother Myocardial infarction stents Father Heart disease Surgical History H/O hernia repair Status post placement of implantable loop recorder Social History Smoking Status: Never smoker alcohol intake: current alcohol intake frequency: holidays/special occasions only substance use type: does not use diet: diabetic and low carbohydrate caffeine: Yes Type: tea Number of servings: 4 what type of physical activity do you participate in: walking ROS ROS ED Constitutional Constitutional ED: Denies chills, fever(s) or weight loss Eyes Eyes: Denies change in vision or diplopia ENT ENT ED: Denies ear pain, rhinorrhea or sore throat Cardiovascular Cardiovascular: Denies chest pain, orthopnea, palpitations or racing heartbeat Respiratory/Chest Respiratory/Chest: Denies cough, dyspnea or orthopnea Gastrointestinal Gastrointestinal: Denies abdominal pain, diarrhea, nausea or vomiting Genitourinary Genitourinary ED: Denies dysuria, hematuria or urinary frequency Musculoskeletal Musculoskeletal: Denies arthralgias or myalgias Integumentary Denies abscess or rash Neurologic Neurologic: Denies headache(s) or weakness Psychiatric Psychiatric: Denies anxiety, depression, suicidal ideation or suicidal thoughts Endocrine Endocrinology: Denies polydipsia, polyphagia or polyuria Allergic/Immunologic Allergic/Immunologic ED: Denies mouth swelling, tongue swelling or urticaria EXAM Physical Exam Const Vital Signs: 06/15/21 13:56 06/15/21 14:42 Temperature 96.2 F L Temperature Source Oral Pulse Rate 127 H 110 H Respiratory Rate 18 22 H Blood Pressure 156/110 H 140/94 H Blood Pressure Mean 125 109 Pulse Ox 96 94 Oxygen Delivery Method Room Air Room Air Positive well nourished and well developed General Appearance ED: well developed HEENT Reports normocephalic, head/scalp atraumatic, TM's clear and moist mucous membranes Negative for trauma Tympanic Membrane ED: Yes TM's clear Eyes PERRL and EOMs intact bilaterally Neck no lymphadenopathy, supple and no JVD Resp normal respiratory effort and clear to auscultation bilaterally Cardio regular rate, regular rhythm and no murmurs GI normal to inspection, nondistended, normoactive bowel sounds and non-tender Palpation: soft Back/Spine no CVA tenderness and normal ROM Extremity normal to inspection General Extremety ED: Negative for edema General Extremity: Negative for edema Neuro oriented x3 and CN's II-XII intact bilaterally Sensorium / Orientation: alert Motor Exam: strength 5/5 throughout Psych mental status grossly normal Mood & Affect: Negative for depressed or tearful Skin no rashes or lesions noted and no wounds MDM MDM MDM Narrative Medical decision making narrative: Patient was observed in the department. He received a liter of IV fluids and a dose of Toradol. He is feeling better states he feels at his neurologic baseline. Keppra and Trileptal levels are send out here. Patient will be discharged home Discharge Plan Triage Chief Complaint: Seizure ED Provider: Zia Adkins Dx/Rx/DC Orders Clinical Impression: Breakthrough seizure, Epilepsy, unspecified, not intractable, without status epilepticus Instructions: Discharge Instructions for Epilepsy Prescriptions: No Action omeprazole 40 mg capsule,delayed release(DR/EC) 40 mg PO DAILY RF: 0 pioglitazone 30 mg tablet 30 mg PO DAILY RF: 0 magnesium oxide 400 mg (241.3 mg magnesium) tablet 400 mg PO DAILY PRNRF: 0 glyburide 5 mg tablet 10 mg PO BID RF: 0 dapagliflozin 5 mg tablet 5 mg PO DAILY RF: 0 Zyrtec 10 mg capsule 10 mg PO DAILY PRNRF: 0 atorvastatin 80 mg tablet 80 mg PO DAILY RF: 0 lisinopril 40 mg tablet 40 mg PO DAILY RF: 0 cyclobenzaprine 10 mg tablet 10 mg PO TID PRN (Reason: muscle pain/spasm) Qty: 90 RF: 0 ibuprofen 800 mg tablet 800 mg PO Q8H PRN (Reason: pain) Qty: 90 RF: 0 oxcarbazepine 600 mg tablet 600 mg PO BID Qty: 60 RF: 4 oxcarbazepine 300 mg tablet 300 mg PO BID Qty: 60 RF: 4 levetiracetam 750 mg tablet See Rx Instructions .ROUTE .COMPLEX Qty: 90 RF: 4 fluoxetine 20 MG capsule 30 mg PO DAILY RF: 0 acetaminophen 325 MG tablet 650 mg PO Q6H PRN PRN (Reason: Mild Pain (scale 0-3)/T>100.7) Qty: 0 RF: 0 metformin 1,000 MG tablet 850 mg PO TIDCM RF: 0 amlodipine 5 mg tablet 5 mg PO DAILY Qty: 90 RF: 3 Primary Care Provider: Skyler Painting Referrals: Skyler Painting MD [Primary Care Provider] - Rip Iniguez MD [STAFF PHYSICIAN] - [facility] appointment Disposition Disposition: Home, Self Care
[2021-06-15] MEDS: 0.9% Normal Saline 1,000 ML 1000 ML IV (14:23)
[2021-06-15] MEDS: Ketorolac 30 MG/ML Syringe IV (14:23)
[2021-06-15 14:42] VITALS: BP 140/94; PULSE 110; RESP 22; O2SAT 94
[2021-06-15 15:26] VITALS: BP 141/94
== END 2021-06-15 15:27 | disposition home or self-care (01) ==
PROVIDERS: Emergency Provider Emergency Medicine; PCP Family Medicine
DX: G40.909 Epilepsy, unspecified, not intractable, without status epilepticus (principal); I10 Essential (primary) hypertension; E11.9 Type 2 diabetes mellitus without complications; E66.9 Obesity, unspecified; Z68.41 Body mass index [BMI] 40.0-44.9, adult; E78.1 Pure hyperglyceridemia; E78.5 Hyperlipidemia, unspecified; I49.5 Sick sinus syndrome; K21.9 Gastro-esophageal reflux disease without esophagitis; G89.29 Other chronic pain; Z95.818 Presence of other cardiac implants and grafts; Z87.01 Personal history of pneumonia (recurrent); Z79.84 Long term (current) use of oral hypoglycemic drugs; Z79.899 Other long term (current) drug therapy
CPT/HCPCS: 96361; 96374; 99285; J7030

== ENCOUNTER 2021-08-24 14:03 | Emergency (ER) | payer MEDICAID, SELFPAY ==
[2021-08-24 14:05] VITALS: BP 121/96; PULSE 110; RESP 24; TEMP 35.7; O2SAT 96; BMI 39.6
--- NOTE | 2021-08-24 14:52 | EX.ED.DYSGE1 ---
HPI History of Present Illness Chief Complaint: Seizure Informant: patient Onset/Context/Timing Onset: Today Narrative Narrative: Patient presents after seizure at home. Patient is history of seizure disorder. Patient states he members going to the bathroom and report from family is that he had a 8-minute seizure. EMS was called. Patient remembers being walked to the EMS cot at home. He is complaining of left shoulder pain. He does not believe he took his seizure medication last night or this morning. [facility] Medical History Breakthrough seizure Chronic back pain Diabetes mellitus type 2 in obese Encounter for long-term current use of high risk medication Frequent headaches GERD (gastroesophageal reflux disease) High triglycerides History of back problems History of emotional problems Hyperlipidemia Hypertension Multiple lipomas Pneumonia Rhomboid muscle pain Seasonal allergies Seizure Seizures Sick sinus syndrome Sinus bradycardia Home Medications fluoxetine 30 mg PO DAILY 06/24/16 [History Last Taken 11/08/16] acetaminophen 650 mg PO Q6H PRN PRN #0 tab 11/10/16 [Rx Last Taken Unknown] metformin 850 mg PO TIDCM 01/12/17 [History Last Taken Unknown] glyburide 5 mg tablet 10 mg PO BID tab 05/14/20 [History Last Taken Unknown] omeprazole 40 mg capsule,delayed release 40 mg PO DAILY cap 05/14/20 [History Last Taken Unknown] dapagliflozin 5 mg tablet 5 mg PO DAILY tab 09/19/20 [History Last Taken Unknown] magnesium oxide 400 mg (241.3 mg magnesium) tablet 400 mg PO DAILY PRN 09/19/20 [History Last Taken Unknown] pioglitazone 30 mg tablet 30 mg PO DAILY tab 09/19/20 [History Last Taken Unknown] cetirizine 10 mg capsule 10 mg PO DAILY PRN 11/21/20 [History Last Taken Unknown] atorvastatin 80 mg tablet 80 mg PO DAILY tab 04/03/21 [History Last Taken Unknown] cyclobenzaprine 10 mg tablet 10 mg PO TID PRN #90 tab 04/03/21 [Rx Last Taken Unknown] ibuprofen 800 mg tablet 800 mg PO Q8H PRN #90 tab 04/03/21 [Rx Last Taken Unknown] lisinopril 40 mg tablet 40 mg PO DAILY tab 04/03/21 [History Last Taken Unknown] amlodipine 5 mg tablet 5 mg PO DAILY #90 tab 04/25/21 [Rx Last Taken Unknown] levetiracetam 750 mg tablet See Rx Instructions .ROUTE .COMPLEX #90 tab 05/12/21 [Rx Last Taken Unknown] oxcarbazepine 600 mg tablet 1,200 mg PO BID #120 tab 06/16/21 [Rx Last Taken Unknown] Allergy/AdvReac Type Severity Reaction Status Date / Time No Known Allergies Allergy Verified 05/12/21 15:16 Family History Mother Myocardial infarction stents Father Heart disease Surgical History H/O hernia repair Status post placement of implantable loop recorder Social History Smoking Status: Never smoker alcohol intake: current alcohol intake frequency: holidays/special occasions only substance use type: does not use diet: diabetic and low carbohydrate caffeine: Yes Type: tea Number of servings: 4 what type of physical activity do you participate in: walking ROS ROS ED Constitutional Constitutional ED: Denies chills or fever(s) Eyes Eyes: Denies change in vision ENT ENT ED: Denies sore throat Cardiovascular Cardiovascular: Denies chest pain Respiratory/Chest Respiratory/Chest: Denies cough or dyspnea Gastrointestinal Gastrointestinal: Denies abdominal pain, diarrhea, nausea or vomiting Genitourinary Genitourinary ED: Denies dysuria Musculoskeletal Musculoskeletal: Reports arthralgias; Denies back pain Integumentary Denies rash Neurologic Neurologic: Denies headache(s) or weakness Allergic/Immunologic Allergic/Immunologic ED: Denies urticaria EXAM Physical Exam Const Vital Signs: 08/24/21 14:05 08/24/21 16:15 Temperature 96.3 F L Temperature Source Temporal Pulse Rate 110 H 103 H Respiratory Rate 24 H 21 H Blood Pressure 121/96 H 133/89 H Blood Pressure Mean 104 103 Pulse Ox 96 98 Oxygen Delivery Method Room Air Room Air Positive well nourished and well developed General Appearance ED: well developed HEENT Negative for trauma or tenderness Eyes PERRL and EOMs intact bilaterally Neck supple Chest Wall inspection of chest normal and palpation of chest normal Resp normal respiratory effort and clear to auscultation bilaterally Cardio regular rate and regular rhythm GI non-tender Palpation: soft Extremity Extremity Narrative: Mild tenderness to palpation of the left shoulder. No obvious deformity. Strong distal pulses. Neuro oriented x3 Sensorium / Orientation: alert Psych mental status grossly normal Skin no rashes or lesions noted MDM MDM MDM Narrative Medical decision making narrative: Patient was given his normal dose of Keppra and Trileptal. Lab work obtained along with left shoulder x-ray. Lab Data Attestation: I reviewed the patient's lab results. Labs: Laboratory Results - last 24 hr 08/24/21 08/24/21 15:10 15:10 WBC 9.1 RBC 4.96 Hgb 14.8 Hct 46.1 MCV 92.9 MCH 29.8 MCHC 32.1 RDW Std Deviation 43.9 RDW Coeff of Shaji 13.0 Plt Count 277 MPV 9.3 Immature Gran % (Auto) 1.000 H Neut % (Auto) 79.8 H Lymph % (Auto) 12.5 L [place] % (Auto) 4.5 Eos % (Auto) 1.5 Baso % (Auto) 0.7 Absolute Neuts (auto) 7.2 Absolute Lymphs (auto) 1.13 Nucleated RBC % 0 Sodium 134 L Potassium 5.1 Chloride 105 Carbon Dioxide 21.0 Anion Gap 8 BUN 15 Creatinine 1.16 Estim Creat Clear Calc 72.80 Est GFR (MDRD) Af Amer 84 Est GFR (MDRD) Non-Af 70 BUN/Creatinine Ratio 12.9 Glucose 421 H Calcium 8.6 Radiography Diagnostic Testing: Clinical Impression(s) from Imaging Studies Shoulder X-Ray 08/24/21 15:47 IMPRESSION: Negative. Electronically Signed: Sonny Duncan MD at 16:10 EST Tel , Service support , Treatment and Re-Evaluation Comments:: Left shoulder x-ray per my interpretation is unremarkable. Lab work significant for a glucose of 421. On repeat evaluation patient resting comfortably. He feels back to baseline. Blood sugar at this time is 363. I believe this is likely a stress response from the seizure itself. He has his seizure medication at home and will be sure to take them as scheduled. Discharge Plan Triage Chief Complaint: Seizure ED Provider: Izzy Molina Dx/Rx/DC Orders Clinical Impression: Breakthrough seizure Instructions: ED Seizure, Recurrent (Adult) Prescriptions: No Action omeprazole 40 mg capsule,delayed release(DR/EC) 40 mg PO DAILY RF: 0 pioglitazone 30 mg tablet 30 mg PO DAILY RF: 0 magnesium oxide 400 mg (241.3 mg magnesium) tablet 400 mg PO DAILY PRNRF: 0 glyburide 5 mg tablet 10 mg PO BID RF: 0 dapagliflozin 5 mg tablet 5 mg PO DAILY RF: 0 Zyrtec 10 mg capsule 10 mg PO DAILY PRNRF: 0 atorvastatin 80 mg tablet 80 mg PO DAILY RF: 0 lisinopril 40 mg tablet 40 mg PO DAILY RF: 0 cyclobenzaprine 10 mg tablet 10 mg PO TID PRN (Reason: muscle pain/spasm) Qty: 90 RF: 0 ibuprofen 800 mg tablet 800 mg PO Q8H PRN (Reason: pain) Qty: 90 RF: 0 levetiracetam 750 mg tablet See Rx Instructions .ROUTE .COMPLEX Qty: 90 RF: 4 fluoxetine 20 MG capsule 30 mg PO DAILY RF: 0 acetaminophen 325 MG tablet 650 mg PO Q6H PRN PRN (Reason: Mild Pain (scale 0-3)/T>100.7) Qty: 0 RF: 0 metformin 1,000 MG tablet 850 mg PO TIDCM RF: 0 amlodipine 5 mg tablet 5 mg PO DAILY Qty: 90 RF: 3 oxcarbazepine 600 mg tablet 1,200 mg PO BID Qty: 120 RF: 4 Primary Care Provider: Skyler Painting Referrals: Skyler Painting MD [Primary Care Provider] - As Needed Disposition Disposition: Home, Self Care
[2021-08-24 15:26] LABS: Absolute Lymphocyte Count 1.13 X10^3/uL (0.83-4.51); Absolute Neutrophil Count 7.2 X10^3/uL (2.0-7.7); Basophil# 0.06 X10^3/uL; Basophil% 0.7 % (0-1); Eosinophil# 0.14 X10^3/uL; Eosinophils% 1.5 % (0-5); Hematocrit 46.1 % (40-54); Hemoglobin 14.8 g/dL (13.0-16.5); Lymphocyte # 1.13 X10^3/ul (0.83-4.51); Lymphocyte % 12.5 % (19-41); Mean Corp Hgb Conc 32.1 g/dL (32-36); Mean Corpuscular Hgb 29.8 pg (27.0-32.0); Mean Corpuscular Volume 92.9 fL (80-94); Mean Platelet Vol. 9.3 fl (6.2-12.0); Monocyte# 0.41 X10^3/uL; Monocyte% 4.5 % (0-10); NRBC Flagged by Analyzer 0 % (0-5); Neutrophil # 7.23 X10^3/uL (2.7-7.7); Neutrophil % 79.8 % (47-70); Platelet Count 277 K/mm3 (150-450); RBC Distribution Width SD 43.9 fl (35.1-43.9); Red Blood Count 4.96 M/mm3 (4.6-6.2); White Blood Count 9.1 K/mm3 (4.4-11.0)
[2021-08-24 15:45] LABS: Anion Gap 8 (5-15); BUN 15 mg/dL (7-18); BUN/Creat Ratio 12.9 RATIO (10-20); Calcium,Total 8.6 mg/dL (8.5-10.1); Chloride 105 mmol/L (98-107); Creatinine, Serum 1.16 mg/dL (0.70-1.30); EST Glomerular Filtration Rate 70 mL/min (>60); Est Glom Filt Rate - Afr Amer 84 mL/min (>60); Glucose 421 mg/dL (74-106); Potassium 5.1 mmol/L (3.5-5.1); Sodium Level 134 mmol/L (136-145)
--- NOTE | 2021-08-24 15:47 | RAD_ITS ---
INDICATION: pain EXAMINATION/TECHNIQUE: X-RAY - LEFT XR Shoulder Min 2 Views 4 VIEWS COMPARISON: None. FINDINGS: SOFT TISSUES: No soft tissue swelling or gas. No radiopaque foreign body. BONES/JOINTS: No acute fracture or subluxation.. Normal alignment. Preservation of the joint space.. No sclerotic or destructive changes observed. There is normal glenohumeral motion. Normal appearance the AC joint and visualized LEFT rib cage. RAD/Shoulder min 2 Views IMPRESSION: Negative. Electronically Signed: Sonny Duncan MD at 16:10 EST Tel , Service support ,
[2021-08-24] MEDS: levETIRAcetam 750 MG Tablet PO (16:08)
[2021-08-24] MEDS: OXcarbazepine 600 MG Tablet 1200 MG PO (16:08)
[2021-08-24 16:15] VITALS: BP 133/89; PULSE 103; RESP 21; O2SAT 98
[2021-08-24 17:15] LABS: Bedside Glucose 363 mg/dL (70-110)
[2021-08-24 17:18] VITALS: BP 149/103; PULSE 107
== END 2021-08-24 17:30 | disposition home or self-care (01) ==
PROVIDERS: Emergency Provider Emergency Medicine; PCP Family Medicine; Visit Provider Emergency Medicine
DX: R56.9 Unspecified convulsions (principal)
CPT/HCPCS: 73030; 80048; 82962; 85025; 99285; A4216

== ENCOUNTER 2021-09-15 15:45 | Outpatient (CLI) | payer MEDICAID, SELFPAY ==
[2021-09-15 18:21] LABS: Potassium 4.5 mmol/L (3.5-5.1)
[2021-09-22 13:39] LABS: KEPPRA (LEVETIRACETAM) 3.9 ug/mL (10.0-40.0); Trileptal-Oxcarbazepine 17 ug/mL (10-35)
== END 2021-09-15 23:59 | disposition home or self-care (01) ==
LOC: MTLAB 15:47
PROVIDERS: PCP Family Medicine; Referring Provider Nurse Practitioner Family; Visit Provider Nurse Practitioner Family
DX: G40.909 Epilepsy, unspecified, not intractable, without status epilepticus (principal); E87.5 Hyperkalemia
CPT/HCPCS: 36415; 80177; 82140; 82542; 84132

== ENCOUNTER → 2022-04-02 | Outpatient (CLI) | payer MEDICAID, SELFPAY ==
[2022-04-02 17:49] LABS: Hematocrit 44.2 % (40-54); Hemoglobin 14.4 g/dL (13.0-16.5); Mean Corp Hgb Conc 32.6 g/dL (32-36); Mean Corpuscular Hgb 29.8 pg (27.0-32.0); Mean Corpuscular Volume 91.5 fL (80-94); Platelet Count 241 K/mm3 (150-450); RBC Distribution Width CV 12.4 % (11.6-14.6); RBC Distribution Width SD 41.5 fl (35.1-43.9); Red Blood Count 4.83 M/mm3 (4.6-6.2)
[2022-04-02 18:04] LABS: ALB/GLOB Ratio 1.2 RATIO (0.9-2.4); AST(SGOT) 14 U/L (15-37); Alanine Aminotransfer ALT/SGPT 31 U/L (16-61); Albumin, Serum 3.7 g/dL (3.2-5.0); Alkaline Phosphatase 56 U/L (45-117); Anion Gap 8 (5-15); BUN 14 mg/dL (7-18); BUN/Creat Ratio 15.4 RATIO (10-20); Calcium,Total 8.4 mg/dL (8.5-10.1); Chloride 106 mmol/L (98-107); Creatinine, Serum 0.91 mg/dL (0.70-1.30); EST Glomerular Filtration Rate 92 mL/min (>60); Est Glom Filt Rate - Afr Amer 111 mL/min (>60); Glucose 112 mg/dL (74-106); Potassium 4.1 mmol/L (3.5-5.1); Protein, Total 6.7 g/dL (6.4-8.2); Sodium Level 138 mmol/L (136-145)
[2022-04-09 16:39] LABS: KEPPRA (LEVETIRACETAM) 8.2 ug/mL (10.0-40.0); Trileptal-Oxcarbazepine 28 ug/mL (10-35)
== END | disposition home or self-care (01) ==
LOC: MTLAB 14:21
PROVIDERS: PCP Family Medicine; Referring Provider Psychiatry & Neurology Neurology; Visit Provider Psychiatry & Neurology Neurology
DX: G40.909 Epilepsy, unspecified, not intractable, without status epilepticus (principal)
CPT/HCPCS: 36415; 80053; 80177; 82140; 82542; 85027

== ENCOUNTER 2022-10-13 20:04 | Emergency (ER) | payer MEDICAID, SELFPAY ==
[2022-10-13 20:04] VITALS: BP 127/70; PULSE 88; RESP 15; TEMP 36.6; O2SAT 96
--- NOTE | 2022-10-13 20:19 | EDS_ITS ---
HPI History of Present Illness Chief Complaint: General Illness Detail of Chief Complaint: Nausea, vomiting diarrhea, recent diagnosis of COVID Informant: patient and family Onset/Context/Timing Onset: Days (Nausea, vomiting diarrhea started 3 to 4 days ago. COVID test performed on Wednesday.) Context: Sudden Onset Timing: Intermittent Quality: Bilateral side pain after vomiting diarrhea Location: Sides Current Severity: Gone Maximum Severity: Moderate Worsened by: Vomiting diarrhea Relieved by: Nothing Associated Symptoms Associated Symptoms: Positive COVID with 19 test October 09 Narrative Narrative: Patient is a middle-aged gentleman with history of sinus bradycardia, seizure disorder, hypertension, type 2 diabetes, hyperlipidemia who presents with nausea, vomiting diarrhea and bilateral side pain for the past 3 to 4 days. He has had 3-4 episodes of emesis and vomiting per day since onset. Patient had a positive COVID test at [facility]. Those records are not available for review through [facility]. He denies fever or chills. He denies headache. He denies visual, ocular auditory symptoms. He does report mild nasal congestion and slight cough. He denies altered taste or smell. He denies chest discomfort. He denies dyspnea or dyspnea on exertion. He does endorse decreased urine output. He denies frequency or urgency. He denies dysuria or hematuria. Prior similar symptoms: No Recent Illness/Hospitalization: Yes [facility] Medical History Breakthrough seizure Chronic back pain Diabetes mellitus type 2 in obese Encounter for long-term current use of high risk medication Frequent headaches GERD (gastroesophageal reflux disease) High triglycerides History of back problems History of emotional problems Hyperlipidemia Hypertension Multiple lipomas Pneumonia Rhomboid muscle pain Seasonal allergies Seizure Seizures Serum potassium elevated Sick sinus syndrome Sinus bradycardia Home Medications fluoxetine 20 mg capsule 30 mg PO DAILY 06/24/16 [History Last Taken 11/08/16] acetaminophen 325 mg tablet 650 mg PO Q6H PRN PRN Mild Pain (scale 0-3)/T>100.7 #0 tabs 11/10/16 [Rx Last Taken Unknown] metformin 1,000 mg tablet 850 mg PO TIDCM 01/12/17 [History Last Taken Unknown] omeprazole 40 mg capsule,delayed release 40 mg PO DAILY 05/14/20 [History Last Taken Unknown] dapagliflozin 5 mg tablet 5 mg PO DAILY 09/19/20 [History Last Taken Unknown] cetirizine 10 mg capsule (Zyrtec) 10 mg PO DAILY PRN 11/21/20 [History Last Taken Unknown] atorvastatin 80 mg tablet 80 mg PO DAILY 04/03/21 [History Last Taken Unknown] lisinopril 40 mg tablet 40 mg PO DAILY 04/03/21 [History Last Taken Unknown] amlodipine 5 mg tablet 5 mg PO DAILY #90 tabs 04/25/21 [Rx Last Taken Unknown] aspirin 325 mg tablet 325 mg PO QHS 09/15/21 [History Last Taken Unknown] glyburide 5 mg tablet 10 mg PO QHS 09/15/21 [History Last Taken Unknown] pioglitazone 30 mg tablet 45 mg PO DAILY 09/15/21 [History Last Taken Unknown] ondansetron HCl 4 mg tablet 4 mg PO Q8H PRN nausea and vomiting #90 tabs 11/28/21 [Rx Last Taken Unknown] levetiracetam 1,000 mg tablet 1,000 mg PO QPM #30 tabs 10/08/22 [Rx Last Taken Unknown] levetiracetam 750 mg tablet 1,500 mg PO QAM #60 tabs 10/08/22 [Rx Last Taken Unknown] oxcarbazepine 600 mg tablet 1,200 mg PO BID #120 tabs 10/08/22 [Rx Last Taken Unknown] ondansetron 4 mg disintegrating tablet 4 mg PO Q8H PRN PRN Nausea #10 tabs 10/13/22 [Rx Last Taken Unknown] Allergy/AdvReac Type Severity Reaction Status Date / Time No Known Allergies Allergy Verified 10/13/22 20:12 Family History Mother Myocardial infarction stents Father Heart disease Surgical History H/O hernia repair Status post placement of implantable loop recorder Social History (Updated 10/08/22 @ 14:44 by Beena Mcintyre) Smoking Status: Never smoker alcohol intake: current alcohol intake frequency: holidays/special occasions only details: occasionally substance use type: does not use diet: diabetic and low carbohydrate caffeine: Yes Type: tea Number of servings: 4 what type of physical activity do you participate in: walking seatbelt use: sometimes ROS ROS ED Constitutional Constitutional ED: Reports fever(s) and subjective; Denies chills or sweats Eyes Eyes: Denies blurry vision, change in vision or diplopia ENT ENT ED: Reports rhinorrhea; Denies ear pain or sore throat Cardiovascular Cardiovascular: Denies chest pain, orthopnea, palpitations, paroxysmal nocturnal dyspnea or racing heartbeat Respiratory/Chest Respiratory/Chest: Reports cough and dyspnea; Denies dyspnea on exertion, orthopnea, paroxysmal nocturnal dyspnea or sputum Gastrointestinal Gastrointestinal: Reports abdominal pain, diarrhea, nausea and vomiting; Denies melena Genitourinary Genitourinary ED: Denies dysuria, hematuria or urinary frequency Musculoskeletal Musculoskeletal: Reports myalgias; Denies arthralgias or neck pain Integumentary Denies rash Neurologic Neurologic: Reports weakness; Denies headache(s) or paresthesias Endocrine Endocrinology: Reports polydipsia; Denies cold intolerance, heat intolerance or polyuria Hematologic/Lymphatic Hematologic/Lymphatic: Reports systems reviewed and no addt'l complaints, except as documented EXAM Physical Exam Const Vital Signs: 10/13/22 20:04 10/13/22 20:30 10/13/22 22:22 Temperature 97.9 F Temperature Source Temporal Pulse Rate 88 68 Respiratory Rate 15 16 Respiratory Effort Normal Non-Labored Respiratory Pattern Normal Blood Pressure 127/70 H 109/71 Blood Pressure Mean 89 83 Pulse Ox 96 98 Oxygen Delivery Method Room Air Room Air Positive well nourished, well developed, obese and unkempt Constitutional Narrative: Patient appears ill but not toxic. General Appearance ED: unkempt, well developed and pallor; Negative for cyanotic or diaphoretic Nutritional Appearance: obese HEENT Reports dry mucous membranes HEENT Narrative: Head is atraumatic normocephalic. Ears are normal. Nares positive slight drainage. Posterior pharynx without erythema or exudate. Uvula is midline. Mouth ED: Yes dry mucous membranes Mouth: dry mucous membranes Eyes PERRL and EOMs intact bilaterally General Eye ED: Negative for pale conjunctiva or scleral icterus Neck no lymphadenopathy, supple and no JVD Chest Wall inspection of chest normal and palpation of chest normal Resp normal respiratory effort and clear to auscultation bilaterally Cardio regular rate, regular rhythm, S1 normal heart sound, S2 normal heart sound and no murmurs GI normal to inspection, nondistended, normoactive bowel sounds, non-distended and no masses; Negative for non-tender or hepatosplenomegaly Back/Spine no CVA tenderness Extremity normal to inspection General Extremety ED: Negative for edema or tenderness General Extremity: Negative for edema Neuro oriented x3, CN's II-XII intact bilaterally and no sensory deficits noted Psych mental status grossly normal Appearance: unkempt Skin no rashes or lesions noted, no wounds and skin turgor normal General Skin Exam: pallor; Negative for jaundice MDM MDM MDM Narrative Medical decision making narrative: Patient's symptoms are secondary to COVID-19 infection. Since he is diabetic we will obtain a basic metabolic panel to assess CO2 anion gap and electrolytes and specifically evaluate for hypokalemia. Since clinically he appears dehydrated 1 L of normal saline was ordered. Zofran was ordered for his nausea and vomiting and Imodium for his diarrhea. CBC was not obtained since conjunctive are pink and there is no concern for anemia. Suspect his white count will reveal neutropenia due to COVID. History & Record Review Discussion w/independent historian: Patient and Family Additional record(s) reviewed:: Prior inpatient record, Prior outpatient record and Prior labs Lab Data Attestation: I reviewed the patient's lab results. Lab results narrative: Basic metabolic panel reveals a glucose of 194 with a normal anion gap. CO2 was slightly diminished at 20. Electrolytes reveal sodium 134 which is unremarkable. BUN to creatinine ratio is elevated at 27-1. Creatinine is slightly elevated 1.38 with a GFR 57. His creatinine has ranged from 0.8-1.41 reviewing prior records. Labs: Laboratory Results - last 24 hr 10/13/22 20:45 Sodium 134 L Potassium 4.2 Chloride 104 Carbon Dioxide 20.0 L Anion Gap 10 BUN 38 H Creatinine 1.38 H Estim Creat Clear Calc 60.48 Est GFR (MDRD) Af Amer 69 Est GFR (MDRD) Non-Af 57 L BUN/Creatinine Ratio 27.5 H Glucose 194 H Calcium 8.3 L Treatment and Re-Evaluation :: Patient was reassessed at 2111. Patient is eating crackers. His nausea and vomiting is resolved. He is presently taking his Imodium tablets. He and his family were made aware of his laboratory results. And is to hydrate until patient urinates since his creatinine is elevated. Patient was reassessed at 2150. The liter has infused. He has no urge to urinate. Second liter was ordered. The night physician Dr. Umana was made aware of the patient. Plan is discharged. If patient does not urinate after second liter of normal saline will need 1/3 L. Discharge Plan Triage Chief Complaint: General Illness ED Provider: Dallas Viveros Dx/Rx/DC Orders Clinical Impression: COVID-19 virus infection, Hypertension, Hyperlipidemia, Nausea, vomiting and diarrhea, Acute prerenal azotemia, Acute renal insufficiency, Hx of seizure disorder Instructions: Coronavirus Disease 2019 (COVID-19): Caring for Yourself or Others, ED Vomiting and Diarrhea ... Prescriptions: New ondansetron [ondansetron] 4 mg tablet,disintegrating 4 mg PO Q8H PRN PRN (Reason: Nausea) Qty: 10 0RF No Action omeprazole 40 mg capsule,delayed release(DR/EC) 40 mg PO DAILY pioglitazone 30 mg tablet 45 mg PO DAILY glyburide 5 mg tablet 10 mg PO QHS dapagliflozin 5 mg tablet 5 mg PO DAILY Label Comments: Take 1 tablet by mouth daily with breakfast. Zyrtec 10 mg capsule 10 mg PO DAILY PRN atorvastatin 80 mg tablet 80 mg PO DAILY lisinopril 40 mg tablet 40 mg PO DAILY Label Comments: TAKE 1 TABLET ONCE DAILY aspirin 325 mg tablet 325 mg PO QHS levetiracetam 750 mg tablet 1,500 mg PO QAM Qty: 60 6RF levetiracetam 1,000 mg tablet 1,000 mg PO QPM Qty: 30 6RF oxcarbazepine 600 mg tablet 1,200 mg PO BID Qty: 120 6RF fluoxetine 20 MG capsule 30 mg PO DAILY Label Comments: DEPRESSION acetaminophen 325 MG tablet 650 mg PO Q6H PRN PRN (Reason: Mild Pain (scale 0-3)/T>100.7) Qty: 0 0RF metformin 1,000 MG tablet 850 mg PO TIDCM amlodipine 5 mg tablet 5 mg PO DAILY Qty: 90 3RF ondansetron HCl 4 mg tablet 4 mg PO Q8H PRN (Reason: nausea and vomiting) Qty: 90 0RF Primary Care Provider: Skyler Painting Referrals: Skyler Painting MD [Primary Care Provider] - 3-5 Days if not improving Activity Restrictions/Additional Instructions: 1. Take Imodium with each loose stool. No more than 6 in a 24-hour span 2. Take Zofran for your nausea and vomiting 3. Increase p.o. liquid intake Disposition Disposition: Home, Self Care
[2022-10-13 20:29] VITALS: BMI 35.1
[2022-10-13] MEDS: Ondansetron 4 MG/2 ML Vial IV (20:44)
[2022-10-13] MEDS: 0.9% Normal Saline 1,000 ML 1000 ML IV ×2 (20:44→22:20)
[2022-10-13] MEDS: Loperamide 2 MG Capsule 4 MG PO (20:44)
[2022-10-13 21:05] LABS: Anion Gap 10 (5-15); BUN 38 mg/dL (7-18); BUN/Creat Ratio 27.5 RATIO (10-20); Calcium,Total 8.3 mg/dL (8.5-10.1); Chloride 104 mmol/L (98-107); Creatinine, Serum 1.38 mg/dL (0.70-1.30); EST Glomerular Filtration Rate 57 mL/min (>60); Est Glom Filt Rate - Afr Amer 69 mL/min (>60); Estimated Creatinine Clearance 60.48 ml/min; Glucose 194 mg/dL (74-106); Potassium 4.2 mmol/L (3.5-5.1); Sodium Level 134 mmol/L (136-145)
[2022-10-13 22:22] VITALS: BP 109/71; PULSE 68; RESP 16; O2SAT 98
[2022-10-13 23:11] VITALS: BP 109/71; PULSE 69; RESP 16; O2SAT 98
== END 2022-10-13 23:32 | disposition home or self-care (01) ==
PROVIDERS: Emergency Provider Emergency Medicine; PCP Family Medicine; Visit Provider Emergency Medicine
DX: U07.1 COVID-19 (principal); G40.909 Epilepsy, unspecified, not intractable, without status epilepticus; E11.9 Type 2 diabetes mellitus without complications; N28.9 Disorder of kidney and ureter, unspecified; I10 Essential (primary) hypertension; E78.5 Hyperlipidemia, unspecified; R11.2 Nausea with vomiting, unspecified; R19.7 Diarrhea, unspecified; R79.89 Other specified abnormal findings of blood chemistry; K21.9 Gastro-esophageal reflux disease without esophagitis; Z79.899 Other long term (current) drug therapy; Z79.82 Long term (current) use of aspirin
CPT/HCPCS: 80048; 96361; 96374; 99282; J7030; A4216; J2405

== ENCOUNTER → 2023-06-15 | Outpatient (CLI) | payer MEDICAID, SELFPAY ==
[2023-06-15 15:17] LABS: Hematocrit 45.2 % (40-54); Hemoglobin 14.6 g/dL (13.0-16.5); Mean Corp Hgb Conc 32.3 g/dL (32-36); Mean Corpuscular Hgb 29.6 pg (27.0-32.0); Mean Corpuscular Volume 91.7 fL (80-94); Mean Platelet Vol. 9.4 fl (6.2-12.0); Platelet Count 230 K/mm3 (150-450); RBC Distribution Width CV 12.8 % (11.6-14.6); RBC Distribution Width SD 43.1 fl (35.1-43.9); Red Blood Count 4.93 M/mm3 (4.6-6.2); White Blood Count 5.6 K/mm3 (4.4-11.0)
[2023-06-15 15:36] LABS: ALB/GLOB Ratio 1.2 RATIO (0.9-2.4); AST(SGOT) 12 U/L (15-37); Alanine Aminotransfer ALT/SGPT 26 U/L (16-61); Albumin, Serum 3.6 g/dL (3.2-5.0); Alkaline Phosphatase 65 U/L (45-117); Anion Gap 5 (5-15); BUN 16 mg/dL (7-18); BUN/Creat Ratio 17.2 RATIO (10-20); Calcium,Total 8.5 mg/dL (8.5-10.1); Chloride 108 mmol/L (98-107); Creatinine, Serum 0.93 mg/dL (0.70-1.30); EST Glomerular Filtration Rate 89 mL/min (>60); Est Glom Filt Rate - Afr Amer 108 mL/min (>60); Globulin 3.1 g/dL (2.2-4.2); Glucose 150 mg/dL (74-106); Potassium 4.3 mmol/L (3.5-5.1); Protein, Total 6.7 g/dL (6.4-8.2); Sodium Level 139 mmol/L (136-145)
[2023-06-23 00:06] LABS: KEPPRA (LEVETIRACETAM) 10.1 ug/mL (10.0-40.0); Trileptal-Oxcarbazepine 27 ug/mL (10-35)
== END | disposition home or self-care (01) ==
LOC: MTLAB 11:29
PROVIDERS: PCP Family Medicine; Referring Provider Psychiatry & Neurology Neurology; Visit Provider Psychiatry & Neurology Neurology
DX: G40.909 Epilepsy, unspecified, not intractable, without status epilepticus (principal)
CPT/HCPCS: 36415; 80053; 80177; 82140; 82542; 85027

== ENCOUNTER → 2023-12-13 | Outpatient (CLI) | payer MEDICAID, SELFPAY ==
[2023-12-13 17:51] LABS: Hematocrit 46.7 % (40-54); Hemoglobin 15.3 g/dL (13.0-16.5); Mean Corp Hgb Conc 32.8 g/dL (32-36); Mean Corpuscular Hgb 29.8 pg (27.0-32.0); Mean Platelet Vol. 9.2 fl (6.2-12.0); Platelet Count 266 K/mm3 (150-450); RBC Distribution Width CV 12.9 % (11.6-14.6); RBC Distribution Width SD 42.9 fl (35.1-43.9); Red Blood Count 5.13 M/mm3 (4.6-6.2); White Blood Count 7.2 K/mm3 (4.4-11.0)
[2023-12-13 18:28] LABS: ALB/GLOB Ratio 1.2 RATIO (0.9-2.4); AST(SGOT) 22 U/L (15-37); Alanine Aminotransfer ALT/SGPT 52 U/L (16-61); Albumin, Serum 3.9 g/dL (3.2-5.0); Alkaline Phosphatase 71 U/L (45-117); Anion Gap 8 (5-15); BUN 10 mg/dL (7-18); BUN/Creat Ratio 10.1 RATIO (10-20); Calcium,Total 9.1 mg/dL (8.5-10.1); Chloride 106 mmol/L (98-107); Creatinine, Serum 0.99 mg/dL (0.70-1.30); EST Glomerular Filtration Rate 83 mL/min (>60); Est Glom Filt Rate - Afr Amer 100 mL/min (>60); Globulin 3.3 g/dL (2.2-4.2); Glucose 194 mg/dL (74-106); Potassium 4.5 mmol/L (3.5-5.1); Protein, Total 7.2 g/dL (6.4-8.2); Sodium Level 137 mmol/L (136-145)
[2023-12-13 19:31] LABS: Vitamin B12 673 pg/mL (211-911)
[2023-12-21 01:07] LABS: KEPPRA (LEVETIRACETAM) 9.1 ug/mL (10.0-40.0); Trileptal-Oxcarbazepine 29 ug/mL (10-35)
== END | disposition home or self-care (01) ==
PROVIDERS: PCP Family Medicine; Referring Provider Psychiatry & Neurology Neurology; Visit Provider Psychiatry & Neurology Neurology
DX: E53.8 Deficiency of other specified B group vitamins (principal); G40.909 Epilepsy, unspecified, not intractable, without status epilepticus
CPT/HCPCS: 36415; 80053; 80177; 82140; 82542; 82607; 85027; 86340

== ENCOUNTER → 2024-07-31 | Outpatient (CLI) | payer MEDICAID, SELFPAY ==
[2024-07-31 15:14] LABS: Absolute Lymphocyte Count 2.38 X10^3/uL (0.83-4.51); Absolute Neutrophil Count 4.4 X10^3/uL (2.0-7.7); Basophil# 0.07 X10^3/uL; Basophil% 0.9 % (0-1); Eosinophil# 0.28 X10^3/uL; Eosinophils% 3.7 % (0-5); Hematocrit 47.7 % (40-54); Hemoglobin 15.7 g/dL (13.0-16.5); Lymphocyte # 2.38 X10^3/ul (0.83-4.51); Lymphocyte % 31.4 % (19-41); Mean Corp Hgb Conc 32.9 g/dL (32-36); Mean Corpuscular Hgb 30.5 pg (27.0-32.0); Mean Corpuscular Volume 92.8 fL (80-94); Mean Platelet Vol. 9.4 fl (6.2-12.0); Monocyte# 0.45 X10^3/uL; Monocyte% 5.9 % (0-10); NRBC Flagged by Analyzer 0 % (0-5); Neutrophil # 4.38 X10^3/uL (2.7-7.7); Platelet Count 243 K/mm3 (150-450); RBC Distribution Width CV 12.5 % (11.6-14.6); RBC Distribution Width SD 42.7 fl (35.1-43.9); Red Blood Count 5.14 M/mm3 (4.6-6.2); White Blood Count 7.6 K/mm3 (4.4-11.0)
[2024-07-31 15:35] LABS: ALB/GLOB Ratio 1.1 RATIO (0.9-2.4); AST(SGOT) 17 U/L (15-37); Alanine Aminotransfer ALT/SGPT 45 U/L (16-61); Albumin, Serum 3.9 g/dL (3.2-5.0); Alkaline Phosphatase 68 U/L (45-117); Anion Gap 9 (5-15); BUN 15 mg/dL (7-18); Calcium,Total 9.2 mg/dL (8.5-10.1); Chloride 106 mmol/L (98-107); Creatinine, Serum 1.07 mg/dL (0.70-1.30); EST Glomerular Filtration Rate 76 mL/min (>60); Est Glom Filt Rate - Afr Amer 91 mL/min (>60); Globulin 3.4 g/dL (2.2-4.2); Glucose 205 mg/dL (74-106); Potassium 4.4 mmol/L (3.5-5.1); Protein, Total 7.3 g/dL (6.4-8.2); Sodium Level 139 mmol/L (136-145)
[2024-08-15 15:07] LABS: KEPPRA (LEVETIRACETAM) 9.7 ug/mL (10.0-40.0)
== END | disposition home or self-care (01) ==
PROVIDERS: PCP Family Medicine; Referring Provider Psychiatry & Neurology Neurology; Visit Provider Psychiatry & Neurology Neurology
DX: G40.909 Epilepsy, unspecified, not intractable, without status epilepticus (principal); E83.42 Hypomagnesemia
CPT/HCPCS: 82542; 36415; 80053; 80177; 82140; 83735; 85025